=== PATIENT | male | born 1980 | race Caucasian/White ===

== ENCOUNTER 2016-09-25 10:36 | Observation (INO) | payer OTHER ==
[~2016-09-25] VITALS: Ht 170.2 cm; Wt 112.9 kg
[~2016-09-25 10:36] MED LIST: AFRI0.055; ZEGE20CA PO
[2016-09-25] MEDS ORDERED: LACTATED RINGER'S 1000 ML IV PRN (11:00)
[2016-09-25] MEDS ORDERED: CHLORHEXIDINE GLUCONATE 2 % 1 PACK (2 CLOTHS) TOPICAL PRN (11:00)
[2016-09-25] MEDS ORDERED: POVIDONE IODINE 5% (ANTISEPSIS KIT) 4 APPLICATIONS EACH NARE PRN (11:00)
[2016-09-25] MEDS ORDERED: INSULIN HUMAN REGULAR 1,000 UNITS/10 ML VIAL SQ PRN (11:00)
[2016-09-25] MEDS ORDERED: POVIDONE IODINE 7.5% SCRUB 118 ML BOTTLE TOPICAL SCH (11:00)
[2016-09-25] MEDS ORDERED: METOPROLOL TARTRATE 25 MG TAB PO PRN (11:00)
[2016-09-25] MEDS ORDERED: ceFAZolin 2 GM PREMIX 50 ML IV SCH (11:00)
[2016-09-25] MEDS ORDERED: SODIUM CHLORID 0.9% 500 ML IV PRN (11:00)
[2016-09-25] MEDS ORDERED: AMLO10TA2 PO (11:14)
[2016-09-25] MEDS ORDERED: OMEP20TA PO (11:14)
[2016-09-25 11:30] VITALS: BP 155/105; PULSE 83; RESP 20; TEMP 99.3; O2SAT 96
[2016-09-25 11:41] LABS: AUTOMATED NEUTROPHIL # 4.6 TH/MM3 (1.8-7.7); BASOPHIL # 0.1 TH/MM3 (0-0.2); BASOPHIL % 0.9 % (0.0-2.0); EOSINOPHIL # 0.3 TH/MM3 (0-0.4); EOSINOPHIL % 3.5 % (0.0-4.0); HEMATOCRIT 41.9 % (39.0-51.0); HEMO FLAGS DIFF FINAL; LYMPH % 29.5 % (9.0-44.0); LYMPHOCYTE # 2.3 TH/MM3 (1.0-4.8); MEAN CELL VOLUME 91.9 FL (80.0-100.0); MEAN CORPUSCULAR HEMOGLOBIN 31.6 PG (27.0-34.0); MEAN CORPUSCULAR HGB CONC 34.3 % (32.0-36.0); MONO % 7.1 % (0.0-8.0); PLATELET COUNT 307 TH/MM3 (150-450); RED BLOOD COUNT 4.56 MIL/MM3 (4.50-5.90); WHITE BLOOD COUNT 7.7 TH/MM3 (4.0-11.0)
[2016-09-25] MEDS ORDERED: PROPOFOL 200 MG/20 ML AMP IV ONE (12:00)
[2016-09-25] MEDS ORDERED: LACTATED RINGER'S 1000 ML INJ 1,000 ML IV ONE (12:00)
[2016-09-25] MEDS ORDERED: ePHEDrine/NS 25 MG/5 ML SYR IV ONE (12:00)
[2016-09-25] MEDS ORDERED: ONDANSETRON HCL 4 MG/2 ML VIAL IV PUSH ONE (12:00)
[2016-09-25] MEDS ORDERED: NEOSTIGMINE 3 MG/3 ML SYR IV ONE (12:00)
[2016-09-25] MEDS ORDERED: APREPITANT 40 MG CAP ONE (12:21)
[2016-09-25] MEDS ORDERED: FAMOTIDINE 20 MG/2 ML VIAL ONE (12:21)
[2016-09-25] MEDS ORDERED: BUPIVACAINE/EPINEPHRINE 0.5% PF 30 ML VIAL ONE (12:57)
[2016-09-25] MEDS ORDERED: ACETAMINOPHEN 1000 MG/100 ML VIAL IV ONE (13:41)
--- NOTE | 2016-09-25 13:58 | EKG ---
Date Performed: 09/25/2016 Time Performed: 11:04:34 PTAGE: 36 years EKG: Sinus rhythm POSSIBLE RIGHT VENTRICULAR CONDUCTION DELAY BORDERLINE ECG PREVIOUS TRACING : 01/25/2014 07.04 DOCTOR: Raz Ambrose Interpretating Date/Time 09/25/2016 13:55:51
[2016-09-25] MEDS ORDERED: ceFAZolin INJ 1,000 MG VIAL IV ONE (14:18)
[2016-09-25] MEDS ORDERED: LIDOCAINE 0.5%/EPINEPHrine 1:200,000 SOLN 50 ML VIAL INFIL ONE (14:30)
--- NOTE | 2016-09-25 17:49 | RADRPT ---
EXAM DATE/TIME: 09/25/2016 15:40 [facility] COMPARISON: FLUOROSCOPY PORTABLE UP TO 1HR, September 25, 2016, 0:00. INDICATIONS : Left fibula hardware removal, stabilization of tib/fib. MEDICAL HISTORY : None. SURGICAL HISTORY : Knee surgery in 2014. ENCOUNTER: Initial ACUITY: 1 day PAIN SCORE: Non-responsive. LOCATION: Left knee. FINDINGS: The final film for the examination demonstrate interval placement of filter janice and screws in the lateral femoral condyle and lateral aspect of the tibia. Hardware appears adequately positioned. CONCLUSION: 1. Hardware placement as above. Gato Lawson MD on September 25, 2016 at 17:46 Board Certified Radiologist. This report was verified electronically.
[2016-09-25] MEDS ORDERED: fentaNYL CITRATE 250 MCG/5 ML AMP ONE (18:26)
[2016-09-25] MEDS ORDERED: MIDAZOLAM HCL 2 MG/2 ML VIAL ONE (18:26)
[2016-09-25] MEDS ORDERED: ACETAMINOPHEN/HYDROcodone 325 MG/7.5 MG TAB PO PRN (18:30)
[2016-09-25] MEDS ORDERED: SODIUM CHLORIDE 0.9% FLUSH 10 ML FLUSH IV FLUSH PRN ×2 (18:30→19:30)
[2016-09-25] MEDS ORDERED: MORPHINE SULFATE 8 MG/ML INJ IV PUSH PRN (18:30)
[2016-09-25] MEDS ORDERED: MORPHINE SULFATE 8 MG/ML INJ ONE (19:56)
[2016-09-25 20:05] VITALS: BP 118/95; PULSE 104; RESP 18; TEMP 97; O2SAT 96
[2016-09-25] MEDS: SODIUM CHLORIDE 0.9% FLUSH 10 ML FLUSH IV FLUSH SCH (20:18)
[2016-09-25] MEDS ORDERED: SODIUM CHLORIDE 0.9% FLUSH 10 ML FLUSH IV FLUSH SCH (21:00)
[2016-09-25] MEDS: ACETAMINOPHEN/HYDROcodone 325 MG/7.5 MG TAB PO PRN (21:12)
[2016-09-25] MEDS: MORPHINE SULFATE 8 MG/ML INJ IV PUSH PRN (23:41)
[2016-09-26 00:05] VITALS: BP 145/94; PULSE 105; RESP 18; TEMP 97.1; O2SAT 97
[2016-09-26] MEDS: ACETAMINOPHEN/HYDROcodone 325 MG/7.5 MG TAB PO PRN ×4 (01:27→14:03)
[2016-09-26] MEDS: MORPHINE SULFATE 8 MG/ML INJ IV PUSH PRN ×3 (03:59→12:50)
[2016-09-26 04:05] VITALS: BP 134/76; PULSE 95; RESP 18; TEMP 96.8; O2SAT 95
--- NOTE | 2016-09-26 07:32 | MP ---
cc: FEROZ BLANCAS MD DATE OF SURGERY 09/25/2016 ATTENDING PHYSICIAN/SURGEON Ferzo Blancas MD PREOPERATIVE DIAGNOSIS Left knee torn lateral meniscus, probable failure ACL graft status post attempted arthrodesis left knee proximal tib-fib joint. PROCEDURE Left knee arthroscopy with partial lateral meniscectomy with debridement of an ACL graft, removal of hardware deep, biceps femoris tenodesis and arthrodesis of the proximal left tib-fib joint. PROCEDURE IN DETAIL Informed consent has been obtained. The patient taken to the operating room, placed in the supine position on the operating room table and was administered a general anesthesia by the anesthesiologist. At that time, the patient had a tourniquet applied to the left thigh. The left leg was prepped with Betadine soap followed by Betadine paint. Draping commenced with a sterile down sheet, sterile U drape, stockinette was applied over the foot and calf. The patient had an extremity drape applied. The foot and calf were wrapped with a Coban. A time-out was held and confirmed. The patient had been given two grams of Ancef prior to the initiation of the operative procedure. At that time, the leg was elevated, tourniquet inflated to 300 mmHg. The left leg was allowed to flex over the side of the operating table and an 18 gauge spinal needle was placed into the region of the lateral infrapatellar portal. This region infiltrated with 4 cc of 0.25% Marcaine with epinephrine. Infiltration was performed in the medial infrapatellar portal and transpatellar tendon portal regions. A small incision was made with an 11-blade region in the region of the transpatellar tendon portal and inflow cannula was placed. A second incision was placed in the region of the lateral infrapatellar portal and the arthroscopic cannula was placed. A diagnostic arthroscopy commenced. The medial compartment was examined. The medial meniscus demonstrated no definite tearing. A medial portal was established. The meniscus was probed. This was gently debrided with the basket forceps along the free edge, but no significant tearing was identified. The undersurface of the medial femoral condyle, the medial tibial plateau appeared satisfactory with mild arthritic change. The scope was maneuvered over the edge of the intercondylar notch and edge of the lateral compartment. The leg was placed in figure four position. The lateral meniscus had a large posterior tear which did involve the popliteal hiatus. Utilizing a basket forceps and a [employer] meniscal shaver, this posterior fragment, a large posterior flap was removed. There was some mild chondromalacia changes noted in the lateral femoral condyle and lateral tibial plateau. The scope was then maneuvered into the intercondylar notch. The leg was flex over the side of the operative eye and the anterior/posterior cruciate ligaments were examined. The ACL had significant damage to the graft although there were some fibers still in place. It should be noted that preoperatively, the patient did have a positive pivot shift. The undersurface of the patella was examined. This appeared essentially normal except for some mild chondromalacia changes. The trochlear groove again had mild chondromalacia changes. The scope was then removed from the knee. The knee was thoroughly irrigated and suctioned. All cannulas were removed. Each portal was closed with a single 4-0 nylon interrupted stitch. Band-Aids, 4x4s, Sof-Rol and a single nylon suture was placed in each portal and attention was turned to the lateral aspect of the patient's leg. The tourniquet was left inflated at that time. A marking pen was utilized to map out the proposed skin incision. The skin and subcutaneous tissue was divided. The dissection was then carried down to the level of the fibula. A prominent screw with a washer was identified. The second one, however, was buried in bone. The two screws and washers were removed. The fibular collateral was identified. The biceps femoris tendon was identified. Biceps femoris tendon was freed up and then brought up along to be parallel with the fibular collateral and a drill hole was placed in the lateral epicondylar region with a 3.2 drill bit. A 4.0 cancellous screw with a spiked washer was then utilized to fix down the biceps tendon. A staple was placed proximal to this repair to reinforce the tenodesis. At that time, the distal fibula was checked. It did appear that there was some healing across the attempted arthrodesis. This area was freshened up, packed with bone morphogenic protein. A semitubular plate was then contoured and fixed to the tibia and across the tib-fib joint with 2.5 cancellous screws. This was tightened down. The tourniquet was deflated prior to application of the final hardware. The wound was then closed with the deep tissues being closed with #1 Vicryl, the deep subcu with 2-0 Vicryl, the superficial subcu with 2-0 Vicryl and the skin with 4-0 nylon interrupted stitches utilizing Allgower stitches. Simple stitches were placed in the arthroscopy portal. Band-Aids were applied over the arthroscopy portals. Steri-Strips were applied over the lateral knee incision. Xeroform, 4x4s, Sof-Rol and a canvas knee splint was applied. The patient tolerated the procedure well, was then taken to the Recovery Room in stable condition. At the completion of the procedure, sponge count, instrument counts and needle counts were correct. Estimated blood loss was 100 cc. MD CHANELLE Matt/VERONICA /6:43 PM /7:08 AM
[2016-09-26] MEDS: SODIUM CHLORIDE 0.9% FLUSH 10 ML FLUSH IV FLUSH SCH (08:33)
[2016-09-26 09:02] VITALS: BP 121/71; PULSE 90; RESP 18; TEMP 97.8; O2SAT 95
[2016-09-26 12:09] VITALS: BP 140/87; PULSE 88; RESP 18; TEMP 97.7; O2SAT 97
[2016-09-26] MEDS ORDERED: OXYC-392 PO (13:49)
[2016-09-26] MEDS ORDERED: CEPH-460 PO (13:49)
== END 2016-09-26 14:11 | disposition home or self-care (01) ==
LOC: HSDC 10:36 → EDSTATUS 13:00 → HSDC 18:35 → N06B 18:35
PROVIDERS: ADMIT Orthopaedic Surgery; ATTEND Orthopaedic Surgery
DX: M23.252 Derangement of posterior horn of lateral meniscus due to old tear or injury, left knee (principal); M22.42 Chondromalacia patellae, left knee; T84.89XA Other specified complication of internal orthopedic prosthetic devices, implants and grafts, initial encounter; I10 Essential (primary) hypertension; K21.9 Gastro-esophageal reflux disease without esophagitis; Y83.1 Surgical operation with implant of artificial internal device as the cause of abnormal reaction of the patient, or of later complication, without mention of misadventure at the time of the procedure; Z88.1 Allergy status to other antibiotic agents
CPT/HCPCS: 27871; 29881; 73564; 76000; 85025; 93005; C1713; J0131; J0690; J2250; J2270; J2405; J2710; J3010; J7120; J8501; L1830; G0378

== ENCOUNTER → 2017-01-02 | Day surgery (SDC) | payer OTHER ==
[~2017-01-02] MED LIST changes: -AFRI0.055; +AMLO10TA2 PO; +BUPIVACAINE/EPINEPHRINE 0.25% PF 10 ML VIAL INFIL ONE; +CEPH-460 PO; +KETOROLAC TROMETHAMINE 30 MG/ML (IVP) VIAL IV PUSH ONE; +LACTATED RINGER'S 1000 ML INJ 1,000 ML ONE; +MIDAZOLAM HCL 2 MG/2 ML VIAL ONE; +OMEP20TA PO; +ONDANSETRON HCL 4 MG/2 ML VIAL IV PUSH ONE; +OXYC-392 PO; +PROPOFOL 200 MG/20 ML AMP IV ONE; -ZEGE20CA PO; +ceFAZolin INJ 1,000 MG VIAL ONE; +traMADol HCL 50 MG TAB ONE
--- NOTE | 2017-01-02 17:50 | TN ---
cc: FEROZ BLANCAS MD DATE OF SURGERY: 01/02/2017. PREOPERATIVE DIAGNOSIS: Left knee status post arthrodesis of the proximal tibia-fibula joint with biceps tenodesis and prominent tenodesis screw. POSTOPERATIVE DIAGNOSIS: Left knee status post arthrodesis of the proximal tibia-fibula joint with biceps tenodesis and prominent tenodesis screw. OPERATIVE PROCEDURE PERFORMED: Left knee removal of hardware tenodesis screw and washer DESCRIPTION OF THE PROCEDURE IN DETAIL: Informed consent was obtained. The patient was taken to the operating room and placed in the supine position on the operating table. He was administered a general anesthesia by Dr. Alex of the anesthesia department. The patient was given a gram of Ancef prior to the initiation of the operative procedure. At that time, the leg was prepped with Betadine soap followed by Betadine paint and draping commenced with sterile down sheets, sterile U-drape. A stockinette was applied to the foot and calf and this was wrapped with a Coban and an extremity drape was applied. A C-arm was brought into position and the position of the screw and washer was checked. A time out was held and confirmed. The patient was given a gram of Ancef prior to the initiation of the operative procedure. At that time, a transverse incision was made over the screw head. This had been discussed preoperatively with the patient. The skin and subcutaneous tissue was divided and bleeders were coagulated Bovie. A small bursa over the screw head was entered and some clear bursal fluid was obtained. The washer was grasped with a hemostat and the screw was gently backed out. It did not require use of the A/O screwdriver. At that time, the wound was irrigated and closed with 3-0 plain sutures in the subcutaneous tissue and 4-0 nylon interrupted Allgower stitches one simple stitch in the skin. Steri-Strips, Xeroform, 4x4s and Joe wrap were applied to the patient's knee. The patient tolerated the procedure well and was then taken to the recovery room in stable condition. At the completion of the procedure, the sponge count, instrument count and needle count were correct. The estimated blood was less than 10 cc. The tourniquet was applied but was not inflated during this operative procedure. MD CHANELLE Matt/KATELYN /3:27 PM /5:37 PM
== END | disposition home or self-care (01) ==
LOC: ESDC 12:32
PROVIDERS: ATTEND Orthopaedic Surgery
DX: Z47.2 Encounter for removal of internal fixation device (principal)
CPT/HCPCS: 01400; 20680; 73560; 76000; J0690; J1885; J2250; J2405; J3010; J7120